=== PATIENT | female | born 1965 | race Caucasian/White ===

== ENCOUNTER → 2018-04-01 | Day surgery (SDC) | payer MEDICARE ==
[~2018-04-01] MED LIST: CELEBREX100 MG PO; IBUPROFEN200 MG PO; IMODIUM2 MG PO; LIDOCAINE HCL 2% LOCAL INJ 5 ML SDV VIAL INJ ONE; MIDAZOLAM HCL 2 MG/2 ML VIAL ONE; OMEPRAZOLE40 MG PO; PAROXETINE HCL20 MG PO; PROPOFOL IV EMULSION 10 MG/ML 50 ML VIAL ONE; QUETIAPINE FUMA25 MG PO; TUMS200 MG PEG
--- OUTSIDE RECORDS SUMMARY | 2018-04-01 09:38 | XMS REPORT ---
Author Author [facility] Address Unknown Phone Unavailable Care Team Providers Care Fur Drummer Name Role Phone Unavailable Unavailable Payers Payer Name Policy Type Policy Number Effective Date Expiration Date Problems This patient has no known problems. Allergies, Adverse Reactions, Alerts Allergy Name Allergy Type Status Severity Reaction(s) Onset Date Inactive Date Treating Clinician Comments No Known Allergies DA Active U 2018-03-01 00:00:00 No Known Allergies DA Active U 2017-09-28 00:00:00 Medications This patient has no known medications.
--- OUTSIDE RECORDS SUMMARY | 2018-04-01 09:38 | XMS REPORT | Clinical Summary ---
Author Author [facility] Address Unknown Phone Unavailable Care Team Providers Care Sleeve Sewer Name Role Phone Fly Moralez MD PCP Allergies No Known Allergies Current Medications Prescription Sig. Disp. Refills Start End Date Status Date omeprazole (PriLOSEC) 40 omeprazole 40 mg cpdr Active MG capsule celecoxib (CeleBREX) 200 TK 1 C PO QD WITH FOOD 0 01/22/20 Active MG capsule 18 PARoxetine (PAXIL) 40 MG TK 1 T PO QD FOR MOOD 5 03/26/20 Active tablet DISORDER 18 QUEtiapine (SEROquel) 50 TK 1 T PO D FOR MOOD 2 03/26/20 Active MG tablet 18 Active Problems Not on file Encounters Date Type Specialty Care Team Description 03/30/2018 Office Visit Gynecologic Oncology Alysia Corcoran MD Malignant neoplasm of cervix, unspecified site (HCC) (Primary Dx) after 03/31/2017 Family History Medical History Relation Name Comments Melanoma Father Pancreatic cancer Father Prostate cancer Father Skin cancer Mother Thyroid cancer Mother Relation Name Status Comments Father Mother Social History Tobacco Use Types Packs/Day Years Used Date Heavy Tobacco Smoker 1 Smokeless Tobacco: Never Used Alcohol Use Drinks/Week oz/Week Comments No Sex Assigned at Date Recorded Not on file Last Filed Vital Signs Vital Sign Reading Time Taken Blood Pressure 115/70 03/30/2018 9:03 AM CDT Pulse 75 03/30/2018 9:03 AM CDT Temperature - - Respiratory Rate - - Oxygen Saturation - - Inhaled Oxygen - - Concentration Weight 42.6 kg (94 lb) 03/30/2018 9:03 AM CDT Height 161.3 cm (5' 3.5") 03/30/2018 9:03 AM CDT Body Mass Index 16.39 03/30/2018 9:03 AM CDT Plan of Treatment Date Type Specialty Care Team Description 07/27/2018 Office Visit Gynecologic Oncology Alysia Corcoran MD [address] [facility] [address] [place] [id number] Health Maintenance Due Date Last Done Comments CERVICAL CANCER SCREENING 1985 BREAST CANCER SCREENING 2014 COLON CANCER SCREENING 2014 SHINGRIX VACCINE (#1) 2014 INFLUENZA VACCINE 01/13/2018 Results Not on fileafter 03/31/2017 Insurance Payer Benefit Subscriber ID Type Phone Address Plan / Group [employer] xxxxxxxx [facility] [place] [address]
[2018-04-01 12:25] VITALS: BP 113/64
== END | disposition home or self-care (01) ==
LOC: OR 09:30
PROVIDERS: ATTEND Internal Medicine
DX: K92.1 Melena (principal); K55.20 Angiodysplasia of colon without hemorrhage; K66.0 Peritoneal adhesions (postprocedural) (postinfection); M06.9 Rheumatoid arthritis, unspecified; N18.9 Chronic kidney disease, unspecified; F32.9 Major depressive disorder, single episode, unspecified; Z01.810 Encounter for preprocedural cardiovascular examination; Z85.41 Personal history of malignant neoplasm of cervix uteri; Z92.21 Personal history of antineoplastic chemotherapy; Z92.3 Personal history of irradiation
CPT/HCPCS: 45331; 93005; J2001; J2250; 45380